=== PATIENT | female | born 1990 | race American Indian/Alaskan Native ===

== ENCOUNTER 2020-01-28 10:25 | Emergency (ER) | payer SELFPAY ==
[2020-01-28 11:15] VITALS: BP 128/79
[2020-01-28] MEDS ORDERED: dexAMETHasone 4 MG/ML VIAL IV ONE (11:48)
[2020-01-28] MEDS ORDERED: KETOROLAC 30 MG/1 ML INJ IM ONE (11:48)
--- NOTE | 2020-01-28 11:52 | Emergency Department Report ---
ED Back Pain/Injury HPI - General Chief Complaint: Back Pain/Injury Stated Complaint: LOWER BACK PAIN, LEG NUMBNESS Source: patient Limitations: No Limitations - History of Present Illness Initial Comments: 29-year-old -[place] female presents to the emergency room for acute back pain that started 1 week ago. Patient states this in her right lower back and radiates down her right thigh to the point where she walks she will get numbness to her toes and lower leg. Patient denies any injury. Patient does report a history of scoliosis. States pain is worse when she sitting and seems to not be able to get in a comfortable position. She states that she has tried Tylenol and ibuprofen without much relief. Last menstrual period was 01/11/2020. MD Complaint: back pain Onset/Timin -: week(s) Similar Symptoms Previously: No Radiation: right leg Severity scale (0 -10): 9 Quality: burning, sharp, stabbing Consistency: constant Improves With: none Worsens With: movement Context: while lifting Associated Symptoms: denies: difficulty walking, difficulty urinating - Related Data Previous Rx's Medication Instructions Recorded Last Taken Type Meloxicam [Mobic] 7.5 mg PO QDAY #20 tablet 01/28/20 Unknown Rx predniSONE [Deltasone] 40 mg PO QDAY 5 Days #10 tab 01/28/20 Unknown Rx Allergies Allergy/AdvReac Type Severity Reaction Status Date / Time Penicillins Allergy Unknown Verified 01/28/20 11:07 ED Review of Systems ROS: Stated complaint: LOWER BACK PAIN, LEG NUMBNESS Other details as noted in HPI Comment: All other systems reviewed and negative ED Past Medical Hx - Past Medical History Previous Medical History?: Yes Hx Asthma: Yes Additional medical history: SCOLIOSIS - Medications Home Medications: Home Medications Medication Instructions Recorded Confirmed Last Taken Type Meloxicam [Mobic] 7.5 mg PO QDAY #20 tablet 01/28/20 Unknown Rx predniSONE [Deltasone] 40 mg PO QDAY 5 Days #10 tab 01/28/20 Unknown Rx ED Physical Exam - General Limitations: No Limitations General appearance: alert, in distress - Head Head exam: Present: atraumatic, normocephalic - Eye Eye exam: Present: normal appearance - ENT ENT exam: Present: mucous membranes moist - Neck Neck exam: Present: normal inspection, full ROM - Respiratory Respiratory exam: Present: accessory muscle use - Back Exam Back exam: Present: full ROM. Absent: rash noted - Expanded Back Exam Expanded Back exam: Sciatic Notch Tenderness: Right, Positive Straight Leg Raise: Right - Neurological Exam Neurological exam: Present: alert, oriented X3 - Psychiatric Psychiatric exam: Present: normal affect, normal mood - Skin Skin exam: Present: warm, dry, intact, normal color. Absent: rash ED Course Vital Signs 01/28/20 11:07 Temperature 98.2 F Pulse Rate 79 Respiratory 20 Rate Blood Pressure 128/79 O2 Sat by Pulse 98 Oximetry ED Medical Decision Making - Medical Decision Making 29-year-old -[place] female presents to the emergency room for acute back pain that started 1 week ago. Patient states this in her right lower back and radiates down her right thigh to the point where she walks she will get numbness to her toes and lower leg. Patient denies any injury. Patient does report a history of scoliosis. States pain is worse when she sitting and seems to not be able to get in a comfortable position. She states that she has tried Tylenol and ibuprofen without much relief. Last menstrual period was 01/11/2020. Patient was given a Toradol and dexamethasone injection. Patient be discharged home on a short dose of steroids and Mobic. Critical care attestation.: If time is entered above; I have spent that time in minutes in the direct care of this critically ill patient, excluding procedure time. ED Disposition Clinical Impression: Lumbar back pain with radiculopathy affecting right lower extremity Disposition: DC-01 TO HOME OR SELFCARE Is pt being admited?: No Does the pt Need Aspirin: No Condition: Stable Additional Instructions: Take medications as prescribed. Follow-up with a specialist for your back. Prescriptions: predniSONE [Deltasone] 40 mg PO QDAY 5 Days #10 tab Meloxicam [Mobic] 7.5 mg PO QDAY #20 tablet Referrals: [facility] [Provider Group] - 3-5 Days Forms: Work/School Release Form(ED)
== END 2020-01-28 12:20 | disposition home or self-care (01) ==
LOC: ED 10:25
DX: M54.16 Radiculopathy, lumbar region (principal); J45.909 Unspecified asthma, uncomplicated; Z79.899 Other long term (current) drug therapy; Z88.0 Allergy status to penicillin
CPT/HCPCS: 96372; 96374; 99282; J1100; J1885

== ENCOUNTER 2020-02-06 19:21 | Emergency (ER) | payer SELFPAY ==
[2020-02-06 20:43] VITALS: BP 133/90
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
[2020-02-06 21:48] LABS: Basophils # (Auto) 0.1 K/mm3 (0.0-0.1); Eosinophils # (Auto) 0.1 K/mm3 (0.0-0.4); Eosinophils % (Auto) 1.5 % (0.0-4.3); Hematocrit 39.9 % (30.3-42.9); Hemoglobin 13.4 gm/dl (10.1-14.3); Lymphocytes # (Auto) 3.5 K/mm3 (1.2-5.4); Lymphocytes % (Auto) 37.4 % (13.4-35.0); Mean Corpuscular HGB Conc 34 % (30-34); Mean Corpuscular Volume 101 fl (79-97); Monocytes # (Auto) 0.8 K/mm3 (0.0-0.8); Monocytes % (Auto) 8.8 % (0.0-7.3); Platelet Count 261 K/mm3 (140-440); Red Blood Count 3.95 M/mm3 (3.65-5.03); Red Cell Distribution Width 12.5 % (13.2-15.2)
[2020-02-06 21:52] LABS: Alanine Aminotransferase 19 units/L (7-56); Albumin 4.5 g/dL (3.9-5); BUN/Creatinine Ratio 13; Blood Urea Nitrogen 12 mg/dL (7-17); Calcium 9.8 mg/dL (8.4-10.2); Hemolysis Index 28
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
== END 2020-02-07 20:20 | disposition home or self-care (01) ==
LOC: ED 19:21
DX: R07.89 Other chest pain (principal); Z53.21 Procedure and treatment not carried out due to patient leaving prior to being seen by health care provider
CPT/HCPCS: 36415; 71046; 80053; 84484; 84702; 85025; 93005